=== PATIENT | male | born 1935 | race Caucasian/White ===

== ENCOUNTER → 2019-12-12 | Outpatient (CLI) | payer OTHER, MEDICARE ==
[~2019-12-12] MED LIST: ASPIRIN EC81 M1 PO; BACLOFEN 10MG T10 MG PO; CYCLOBENZAPRINE10 MG PO; ENDOCET 10-3251 EACH PO; FINASTERIDE5 MG PO; FISH OIL 1,0001 EAC5 PO; FLECAINIDE ACET50 M2 PO; FLEXERIL PO; FUROSEMIDE 20 M20 MG; GABAPENTIN100 MG PO; HYDROCODON-ACE1 EAC8 PO; HYDROCODONE-AP1 EA11 PO; MELOXICAM7.5 MG PO; METHOCARBAMOL750 MG PO; NEURONTIN 300300 M1 PO; NEURONTIN600 MG PO; NEXIUM40 MG PO; OXYCONTIN10 MG PO; OXYCONTIN20 M1 PO; OXYCONTIN20 MG PO; PREDNISONE 5 MG5 M1 PO; PREDNISONE 5 MG5 MG PO; PROSCAR 5MG TABL5 M1 PO; REMERON30 MG PO; STERAPRED5 MG PO; TAMBOCOR 100 M100 MG PO; TAMBOCOR 50 MG50 MG PO; TAMBOCOR PO; TAMSULOSIN HCL0.4 MG PO; TOPROL XL25 MG PO; ZYRTEC10 MG PO
== END ==
LOC: SJCVCIMAG 12-11 10:05
PROVIDERS: ATTEND Internal Medicine
DX: I48.0 Paroxysmal atrial fibrillation (principal); R94.39 Abnormal result of other cardiovascular function study; R53.83 Other fatigue; E78.1 Pure hyperglyceridemia

== ENCOUNTER → 2019-12-25 | Outpatient (CLI) | payer OTHER, MEDICARE ==
[~2019-12-25] VITALS: Ht 182.9 cm; Wt 102.1 kg
[2019-12-25 07:23] VITALS: BP 134/82
[2019-12-25 07:27] LABS: HEMATOCRIT 48.3 % (42.0-52.0); MCH 32.8 pg (26.0-34.0); MCHC 35.3 g/dL (28.0-37.0); MCV 93.1 fL (80.0-100.0); RBC 5.19 mil/uL (4.50-6.00); RDW 12.5 % (10.5-14.5); WBC 10.1 thou/uL (4.0-11.0)
[2019-12-25 07:31] LABS: CALCIUM 9.4 mg/dL (8.5-10.1); CREATININE 1.4 mg/dL (0.7-1.3); POTASSIUM 3.8 mmol/L (3.5-5.1)
--- NOTE | 2019-12-25 07:35 | EKG ---
[facility] [place] [address] ELECTROCARDIOGRAM REPORT Name: JUAN RALPH [id number] Admission: 12/25/19 Attend Phys: Kevin Rodrigez MD, Discharge: Date of : 39 Report #: [id number] THIS REPORT FOR: cc: Mayo Proctor MD, Christopher B. MD Lundgren,Jayme Mistry MD [facility] ~ THIS REPORT FOR: //name// [facility] Test Date: 2019-12-25 Test Time: 07:14:51 Pat Name: JUAN RALPH Department: Room: Gender: Last Scourer: Ward ZHANG : 1935 Requested By: Kevin Rodrigez Order Number: [id number] MD: Jayme Parham Measurements Intervals [place] Rate: 71 P: 14 IA: 242 QRS: -51 QRSD: 113 T: 38 QT: 406 QTc: 442 Interpretive Statements Sinus rhythm Prolonged IA interval Left anterior fascicular block Abnormal R-wave progression, late transition Compared to ECG 06/02/2006 07:56:39 First degree AV block now present Left anterior fascicular block now present Sinus bradycardia no longer present Electronically Signed On 12-25-2019 7:34:40 CDT by Jayme Parham [email or web address] <ELECTRONICALLY SIGNED> By: Jayme Parham MD, [facility] 12/25/19733 3 3 Jayme Parham MD, [facility] /EPI
--- NOTE | 2019-12-26 16:27 | CATHLAB ---
[facility] [place]i [place] [place] [address] INVASIVE PROCEDURE REPORT Name: JUAN RALPH Room #: REG KELLI Chan.#: [id number] Admission: 12/25/19 Attend Phys: Kevin Rodrigez MD, Discharge: Date of : 39 Report #: [id number] THIS REPORT FOR: cc: Mayo Proctor MD, Christopher B. MD Mancuso, Gerald M. MD [facility] ~ APPROVED REPORT Study performed: 12/25/2019 07:25:12 Patient Details Patient Status: Out-Patient Room #: The patient is a 84 year-old male Event Personnel Kevin Rodrigez Pest Control Applicator, Zoya Garcia RTR, HEAD WAITER/WAITRESS BANQUET Monitor, Ari Farmer RN RN, Little Banerjee Scrsukhdeep Procedures Performed Art Access - R femoral artery* Chuckie Access - R femoral vein Right and Left Heart Cath w/or w/o Coronarie [id number] RL [address]328 Initial Mod Sed Same Phys/QHP [facility] 569374 44007 Mod Sed Same Phys/QHP Ea 764644 28475 Mod Sed Same Phys/QHP Ea 538791 Hemostasis w/ Mynx Hemostasis with Manual pressure Aortogram Abdominal Peripheral Angio 155465 Renal Bilateral Peripheral Angiography [id number] CVRENALBIL Indication Dyspnea, Positive stress test Procedure Narrative The Right Groin^ was infiltrated with 1% Lidocaine subcutaneous anesthesia. A PINNACLE 6FR Sheath #[id number] sheath was inserted into the RFA. Coronary angiography was performed using coronary diagnostic catheters. The right coronary system was accessed and visualized with a JR4 catheter. The left coronary system was accessed and visualized with a JL4 catheter. The left ventricle was accessed and visualized with a pigtail catheter. Left ventricular/Aortic Valve gradient assessed via catheter pullback. Left ventriculogram was performed in 30 degree projection. An aortogram of the abdominal aorta was performed. Closure device was deployed with a 6 Fr MynxGrip 6/7F. Hemostasis was obtained with manual pressure following sheath removal without any complications. The patient tolerated the procedure well and there were no complications associated with the procedure. There [address] [address] INVASIVE PROCEDURE REPORT Name: JUAN RALPH Room #: [facility] Sosa#: [id number] Admission: 12/25/19 Attend Phys: Kevin Rodrigez, Discharge: Date of : 39 Report #: [id number] was no hematoma. Intraoperative Conscious Sedation Sedation start time: 08:44 Case end Time: 09:28 Fentanyl 50 mcg Versed 1 mg Fluoro Time: 5.10 minutes Dose: DAP 6469.90 cGycm2 556 mGy Contrast Type and Amount: Omnipaque 115 ml Hemodynamics The right atrial mean pressure is 9 mmHg. The right ventricular pressure is 30/8 mmHg. The pulmonary artery pressure is 31/12 mmHg with a mean of 21 mmHg. The mean pulmonary capillary wedge pressure is 11 mmHg. The aortic pressure is 124/60 mmHg with a mean of 56 mmHg. The left ventricular pressure is 131/11 mmHg with a mean of mmHg. The left ventricular end diastolic pressure is 15 mmHg. The cardiac output using thermo method is 4.20 L/min. The cardiac index using thermo method is 1.87 L/min/m2. Conclusion 1. Successful right heart catheterization with cardiac output by thermodilution. See above hemodynamics. #2 normal left jugular size and systolic function EF 55% #3 abdominal aorta shows mild tortuosity but no evidence of aneurysm. Renal arteries are patent. #4 left main free of disease giving rise to LAD and circumflex #5 LAD with mild irregularities proximal calcification and mid vessel calcification. Diffuse distal disease. No occlusive disease for intervention. 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 We will continue to treat this medically. 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 There is a dual supply to the left renal artery with mild disease these are selectively injected. Recommendations and plan: Continue aggressive risk factor [address] [address] INVASIVE PROCEDURE REPORT Name: JUNA RALPH [id number] Admission: 12/25/19 Attend Phys: Kevin Rodrigez, Discharge: Date of : 39 Report #: [id number] modification. No indication for coronary intervention. Continue current medical regimen. Follow-up will be arranged. <ELECTRONICALLY SIGNED> By: Kevin Rodrigez MD, FACC 12/26/19 1626 [id number] 162 Kevin Rodrigez MD, FAC /INF
== END | disposition home or self-care (01) ==
LOC: CATH 06:38
PROVIDERS: ATTEND Internal Medicine Cardiovascular Disease
DX: R94.39 Abnormal result of other cardiovascular function study (principal); R06.00 Dyspnea, unspecified; I25.10 Atherosclerotic heart disease of native coronary artery without angina pectoris; I70.1 Atherosclerosis of renal artery; E11.9 Type 2 diabetes mellitus without complications; I48.91 Unspecified atrial fibrillation; Z98.890 Other specified postprocedural states; Z79.899 Other long term (current) drug therapy; Z90.49 Acquired absence of other specified parts of digestive tract; Z88.8 Allergy status to other drugs, medicaments and biological substances

== ENCOUNTER 2020-06-14 13:36 | Emergency (ER) | payer OTHER, MEDICARE ==
[~2020-06-14] VITALS: Ht 182.9 cm; Wt 102.1 kg
[2020-06-14 14:11] VITALS: BP 147/77
== END 2020-06-14 14:55 | disposition home or self-care (01) ==
LOC: ER 13:36
DX: R07.89 Other chest pain (principal); Z79.899 Other long term (current) drug therapy; Z88.8 Allergy status to other drugs, medicaments and biological substances; W01.0XXA Fall on same level from slipping, tripping and stumbling without subsequent striking against object, initial encounter; Y93.89 Activity, other specified; Y92.89 Other specified places as the place of occurrence of the external cause; Y99.8 Other external cause status